=== PATIENT | male | born 1990 | race Caucasian/White ===

== ENCOUNTER 2025-02-20 19:09 | Emergency (ER) | payer MEDICAID, SELFPAY ==
[2025-02-20] VITALS (8 sets, daily range): BP systolic 132–190; BP diastolic 84–106; PULSE 71–97; RESP 16–22; TEMP 36.7; O2SAT 95–99; BMI 40.9
--- NOTE | 2025-02-20 19:12 | EKG12_ITS ---
Test Reason : CP/SOB Blood Pressure : */* mmHG Vent. Rate : 77 BPM Atrial Rate : 77 BPM P-R Int : 172 ms QRS Dur : 98 ms QT Int : 358 ms P-R-T Axes : 11 -3 44 degrees QTcB Int : 405 ms Normal sinus rhythm Minimal voltage criteria for LVH, may be normal variant ( R in aVL ) Borderline ECG Confirmed by Miky Dacosta ([id number]), acquisition editor PUAL THOMAS ([id number]) on 02/23/2025 6:52:45 AM Referred By: Confirmed By: Miky Dacosta
--- NOTE | 2025-02-20 19:53 | EDS_ITS ---
HPI <VI Mendoza - Last Filed: 02/20/25 22:13> History of Present Illness Chief Complaint: Chest Pain Narrative Narrative: Patient is a 34-year-old male with history of morbid obesity, anxiety, sleep apnea who [facility] for shortness of breath. Patient states that he drove 18 hours to and from [place], getting back home 2 and half weeks ago. Patient states since then, he has been having periods of shortness of breath. He states that these are worse at nighttime, he has lost weight he thinks that his sleep apnea machine is too strong. He states today while he was driving 1.5 hours to and from work that he could not catch his breath. He denies any specific pain however this is making him anxious and is here for evaluation. [facility] <VI Mendoza - Last Filed: 02/20/25 22:13> [facility] Medical History (Updated 02/20/25 @ 22:13 by VI Mendoza) Depression Anxiety Medical History no medical history Allergy/AdvReac Type Severity Reaction Status Date / Time No Known Allergies Allergy Verified 02/20/25 19:09 Family History no significant family his Surgical History no surgical history Social History Smoking Status: Current every day smoker tobacco type: e-cigarettes ROS <VI Mendoza - Last Filed: 02/20/25 22:13> ROS ED ROS Narrative Constitutional: Negative for fever, chills, weight loss, weakness Eyes: Negative for vision loss, vision change, double vision ENT: Negative for any sore throat, ear pain, congestion Cardiovascular: Negative for any palpitations. Positive chest pain, tightness Respiratory: Negative for any cough, sputum production, hemoptysis.Positive for dyspnea, dyspnea on exertion, orthopnea Gastrointestinal: Negative for any abdominal pain, nausea, vomiting, diarrhea, constipation, blood in stool, blood in vomit : Negative for any urinary frequency, dysuria, retention, blood in urine Muscle skeletal: Negative for any neck pain, back pain Neurological: Negative for any headache, syncope, dizziness Skin: Negative for any rashes, itching, abrasions, lacerations Psychiatric: Negative for any depression, anxiety, stress, suicidal ideation, homicidal ideation Hematologic: Negative for any excessive bruising, easy bleeding EXAM <VI Mendoza - Last Filed: 02/20/25 22:13> Physical Exam Narrative Exam Narrative: Vital signs reviewed. HEET: Head normocephalic atraumatic, TMs clear bilaterally. Posterior pharynx is clear, moist mucous membranes. Nares clear bilaterally. Neck: Supple with no lymphadenopathy or tenderness. No signs of meningismus. Cardiac: Regular rate and rhythm no murmurs gallops or rubs, equal peripheral pulses bilaterally. Respiratory: Lungs clear to auscultation bilaterally. Difficult to assess secondary to body habitus no chest tenderness. Abdomen: Soft, nontender, nondistended. No abdominal bruit or pulsatile masses. No hepatosplenomegaly Extremities: No peripheral edema, no signs of gross trauma or deformity. Active full range of motion of all extremities. Neuro: Cranial nerves II through XII intact, no focal neurological deficits. Skin: Clean dry and intact with no rash, purpura, petechiae, vesicles or pustules. Backs/flank: No CVA tenderness, no midline spinal tenderness, no deformity. Psych: Normal mood and affect. No SI, HI or acute psychosis. Const Vital Signs: 02/20/25 19:09 02/20/25 19:12 02/20/25 19:15 Temperature 98.1 F Temperature Source Oral Pulse Rate 88 Respiratory Rate 18 Respiratory Effort Respiratory Depth Respiratory Pattern Blood Pressure 190/106 H 160/102 H Blood Pressure Mean 134 121 Pulse Ox 99 97 Oxygen Delivery Method Room Air Room Air 02/20/25 20:02 02/20/25 20:04 02/20/25 20:09 Temperature Temperature Source Pulse Rate 74 Respiratory Rate 22 H Respiratory Effort Normal Normal Respiratory Depth Normal Respiratory Pattern Normal Blood Pressure 148/92 H Blood Pressure Mean 110 Pulse Ox 95 Oxygen Delivery Method Room Air Room Air 02/20/25 21:00 02/20/25 22:00 02/20/25 22:21 Temperature 98.1 F Temperature Source Pulse Rate 97 71 71 Respiratory Rate 16 16 Respiratory Effort Respiratory Depth Respiratory Pattern Blood Pressure 149/89 H 132/84 H 132/84 H Blood Pressure Mean 109 100 100 Pulse Ox 95 95 Oxygen Delivery Method Room Air Room Air Positive well nourished, well developed and obese General Appearance ED: well developed Nutritional Appearance: obese <Bradley Cabrera MD - Last Filed: 02/20/25 23:45> Physical Exam Const Vital Signs: 02/20/25 19:09 02/20/25 19:12 02/20/25 19:15 Temperature 98.1 F Temperature Source Oral Pulse Rate 88 Respiratory Rate 18 Respiratory Effort Respiratory Depth Respiratory Pattern Blood Pressure 190/106 H 160/102 H Blood Pressure Mean 134 121 Pulse Ox 99 97 Oxygen Delivery Method Room Air Room Air 02/20/25 20:02 02/20/25 20:04 02/20/25 20:09 Temperature Temperature Source Pulse Rate 74 Respiratory Rate 22 H Respiratory Effort Normal Normal Respiratory Depth Normal Respiratory Pattern Normal Blood Pressure 148/92 H Blood Pressure Mean 110 Pulse Ox 95 Oxygen Delivery Method Room Air Room Air 02/20/25 21:00 02/20/25 22:00 02/20/25 22:21 Temperature 98.1 F Temperature Source Pulse Rate 97 71 71 Respiratory Rate 16 16 Respiratory Effort Respiratory Depth Respiratory Pattern Blood Pressure 149/89 H 132/84 H 132/84 H Blood Pressure Mean 109 100 100 Pulse Ox 95 95 Oxygen Delivery Method Room Air Room Air [facility] <VI Mendoza - Last Filed: 02/20/25 22:13> [facility] Lab Data Labs: Laboratory Results - last 24 hr 02/20/25 20:24 WBC 11.0 RBC 4.77 Hgb 14.0 Hct 41.2 MCV 86.4 MCH 29.4 MCHC 34.0 RDW Std Deviation 42.8 RDW Coeff of Chris 13.6 Plt Count 261 MPV 9.2 Immature Gran % (Auto) 0.400 Neut % (Auto) 65.3 Lymph % (Auto) 24.4 [place] % (Auto) 7.9 Eos % (Auto) 1.6 Baso % (Auto) 0.4 Absolute Neuts (auto) 7.2 Absolute Lymphs (auto) 2.67 Nucleated RBC % 0 Sodium 137 Potassium 3.7 Chloride 103 Carbon Dioxide 22.5 Anion Gap 12 BUN 11 Creatinine 0.97 Estim Creat Clear Calc 159.63 Est GFR (MDRD) Non-Af 104 BUN/Creatinine Ratio 11.2 Glucose 96 Calcium 9.2 Troponin T High Sens < 6 Radiography Diagnostic Testing: Clinical Impression(s) from Imaging Studies Chest CTA 02/20/25 20:50 IMPRESSION: NORMAL CHEST CTA. NO EVIDENCE OF ACUTE PULMONARY EMBOLISM. Reading Location: [facility] EKG EKG shows normal sinus rhythm, rate of 77 bpm: Attestation: I personally reviewed and interpreted this EKG as follows: Interpretation: Sinus Rhythm Comments: Normal sinus rhythm, rate of 77 bpm, [place] interval 172 ms, QRS duration 98 ms, no acute ST elevation, no acute infarct noted. Treatment and Re-Evaluation :: Differential diagnosis includes however is not limited to: ACS, W[place], PE, anxiety, sleep apnea, pneumonia Patient appears generally well, vital signs are stable, patient is nontoxic- appearing. Presenting to the emergency department for ongoing worsening shor tness of breath. Patient is morbidly obese, patient received a cardiac workup including troponins x 2. Basic laboratory values. Secondary to the patient's long car rides, 1.5 hours to and from work, patient's inactivity, body habitus as well as recently returning home from driving to [place] a couple weeks ago, patient will receive a CTA of the chest. I also believe that a chest x-ray may not be as useful secondary to the body habitus. All radiologic examinations were read, reviewed by the emergency department attending. From these reads, a plan of care will be put in place. Patient CBC was unremarkable, chemistries were unremarkable, troponin was less than 6. Currently waiting for a CT scan of the chest. Patient's CTA of the chest was normal, no evidence of any acute pulmonary embolism. At this time, the patient will be discharged home. There is no evidence of any ACS, WV, PE. Patient will need to follow-up with a PCP. He is happy with the plan of care, he will continue to try to keep using his CPAP machine. He is given strict return precautions, all questions answered, stable for discharge <Bradley Cabrera MD - Last Filed: 02/20/25 23:45> [facility] Narrative Medical decision making narrative: Dr. Cabrera: I have personally performed a face to face assessment of the patient and have reviewed the MENG Note. I performed a substantive portion of the visit including all aspects of the following. My faustin findings include: History is pleuritic chest pain, shortness of breath. Exam is afebrile. Vital signs noted. Nontoxic-appearing. Cardiovascular examination reveals a regular rate and rhythm. Lungs clear to auscultation bilaterally. Abdomen is soft and nontender without guarding or rebound. Neurological examination nonfocal and nonlateralizing. Medical Decision Making: Check labs. Check CTA. No evidence of pulmonary embolism. Check troponin. Check EKG. EKG obtained interpreted by myself independently as normal sinus rhythm at [address] changes. No STEMI. As he has a normal CTA, he feels that he might have more anxiety symptoms and reaction regarding his chest pain and shortness of breath. I feel he be discharged to follow-up. Return instructions reviewed. Disposition is discharged home in stable condition. Other additions or changes: [None] History & Record Review Discussion w/independent historian: Patient Lab Data Attestation: I reviewed the patient's lab results. Labs: Laboratory Results - last 24 hr 02/20/25 20:24 WBC 11.0 RBC 4.77 Hgb 14.0 Hct 41.2 MCV 86.4 MCH 29.4 MCHC 34.0 RDW Std Deviation 42.8 RDW Coeff of Chris 13.6 Plt Count 261 MPV 9.2 Immature Gran % (Auto) 0.400 Neut % (Auto) 65.3 Lymph % (Auto) 24.4 [place] % (Auto) 7.9 Eos % (Auto) 1.6 Baso % (Auto) 0.4 Absolute Neuts (auto) 7.2 Absolute Lymphs (auto) 2.67 Nucleated RBC % 0 Sodium 137 Potassium 3.7 Chloride 103 Carbon Dioxide 22.5 Anion Gap 12 BUN 11 Creatinine 0.97 Estim Creat Clear Calc 159.63 Est GFR (MDRD) Non-Af 104 BUN/Creatinine Ratio 11.2 Glucose 96 Calcium 9.2 Troponin T High Sens < 6 Radiography Diagnostic Testing: Clinical Impression(s) from Imaging Studies Chest CTA 02/20/25 20:50 IMPRESSION: NORMAL CHEST CTA. NO EVIDENCE OF ACUTE PULMONARY EMBOLISM. Reading [facility] Discharge Plan Triage Chief Complaint: Chest Pain Other Complaint: Shortness of Breath ED Midlevel Provider: Jason Ritchie ED Provider: Bradley Cabrera Dx/Rx/DC Orders Clinical Impression: Acute dyspnea, Anxiety Instructions: ED Dyspnea Primary Care Provider: Gabriela Canchola Referrals: Care Physician,No Primary [Non-Staff] - Activity Restrictions/Additional Instructions: You had a negative cardiac workup as well as a negative CTA of the chest. Continue to follow-up outpatient. Print Language: Comoran Disposition Disposition: Home, Self Care Discharge Date/Time: 02/20/25 22:25
[2025-02-20 20:34] LABS: Absolute Lymphocyte Count 2.67 X10^3/uL (0.83-4.51); Absolute Neutrophil Count 7.2 X10^3/uL (2.0-7.7); Basophil# 0.04 X10^3/uL; Basophil% 0.4 % (0-1); Eosinophil# 0.18 X10^3/uL; Eosinophils% 1.6 % (0-5); Hematocrit 41.2 % (40-54); Lymphocyte # 2.67 X10^3/ul (0.83-4.51); Lymphocyte % 24.4 % (19-41); Mean Corpuscular Hgb 29.4 pg (27.0-32.0); Mean Corpuscular Volume 86.4 fL (80-94); Mean Platelet Vol. 9.2 fl (6.2-12.0); Monocyte# 0.87 X10^3/uL; Monocyte% 7.9 % (0-10); NRBC Flagged by Analyzer 0 % (0-5); Neutrophil # 7.15 X10^3/uL (2.7-7.7); Neutrophil % 65.3 % (47-70); Platelet Count 261 K/mm3 (150-450); RBC Distribution Width CV 13.6 % (11.6-14.6); RBC Distribution Width SD 42.8 fl (35.1-43.9); Red Blood Count 4.77 M/mm3 (4.6-6.2)
--- NOTE | 2025-02-20 20:50 | CT_ITS ---
PROCEDURE: CTA CHEST W/WO CONTRAST 02/20/2025 REASON FOR EXAM: DYSPNEA TECHNIQUE: CTA axial imaging of the chest with intravenous contrast. Coronal and Sagittal reconstruction series were provided. 3D, 3D post processing, 3D reconstructions, Maximum intensity projection (MIPs) Volume rendering and Shaded surface rendering was provided. PATIENT PREPARATION: Per protocol CONTRAST: Isovue 370 VOLUME: 98 mL Not Provided Gauge IV One or more dose reduction techniques were used (e.g., Automated exposure control, adjustment of the mA and/or kV according to patient size, use of iterative reconstruction technique). RADIATION DOSE SUMMARY: CTDlvol: 27 mGy DLP: 568 mGycm . COMPARISON: None FINDINGS: Hardware: Unremarkable Lymph nodes: No lymphadenopathy. Heart: Heart size is normal. No pericardial effusion. RV/LV Diameter Ratio: Thoracic Aorta: Contrast timing is designed to evaluate the pulmonary arteries. The thoracic aorta has a normal contour. Contrast opacification of the aorta is suboptimal for evaluation of the lumen. Pulmonary Vessels: No large central pulmonary emboli are identified. Contrast timing is suboptimal for evaluation of more distal branches. Most Proximal Level of Embolus (if embolus present): Lungs and Airways: The lungs are normally expanded and clear. Pleura: No pleural effusion. No pneumothorax. Upper Abdomen: Visualized portions of the upper abdominal viscera are unremarkable. Bones: Bone windows are unremarkable. CT/CTA Chest W/WO Contrast IMPRESSION: NORMAL CHEST CTA. NO EVIDENCE OF ACUTE PULMONARY EMBOLISM. [facility]
[2025-02-20 20:55] LABS: Anion Gap 12 (5-15); BUN 11 mg/dL (4-19); BUN/Creat Ratio 11.2 RATIO (10-20); Calcium,Total 9.2 mg/dL (7.6-11.0); Carbon Dioxide 22.5 mmol/L (21.0-32.0); Chloride 103 mmol/L (98-108); Creatinine, Serum 0.97 mg/dL (0.70-1.20); EST Glomerular Filtration Rate 104 (>60); Estimated Creatinine Clearance 159.63 ml/min (50-250); Glucose 96 mg/dL (70-99); Potassium 3.7 mmol/L (3.3-5.1); Sodium Level 137 mmol/L (133-145); Troponin T High Sensitivity < 6 ng/L (<=22)
== END 2025-02-20 22:25 | disposition home or self-care (01) ==
PROVIDERS: Emergency Provider Emergency Medicine; PCP Family Medicine; Visit Provider Emergency Medicine
DX: R06.02 Shortness of breath (principal); E66.01 Morbid (severe) obesity due to excess calories; Z68.41 Body mass index [BMI] 40.0-44.9, adult; F41.9 Anxiety disorder, unspecified; F17.290 Nicotine dependence, other tobacco product, uncomplicated
CPT/HCPCS: 71275; 80048; 84484; 85025; 93005; 99285; Q9967; A4216

== ENCOUNTER 2025-04-01 13:17 | Emergency (ER) | payer MEDICAID, SELFPAY ==
[2025-04-01 13:17] VITALS: BP 159/97; PULSE 108; RESP 18; TEMP 36.1; O2SAT 97
--- NOTE | 2025-04-01 14:59 | EKG12_ITS ---
Test Reason : SOB Blood Pressure : */* mmHG Vent. Rate : 77 BPM Atrial Rate : 77 BPM P-R Int : 196 ms QRS Dur : 96 ms QT Int : 352 ms P-R-T Axes : 21 -7 28 degrees QTcB Int : 398 ms Normal sinus rhythm with sinus arrhythmia Minimal voltage criteria for LVH, may be normal variant ( R in aVL ) Poor R wave progression Abnormal ECG When compared with ECG of 20-Feb-2025 19:18, No significant change was found Confirmed by Miky Dacosta ([id number]), photographic editor PAUL THOMAS ([id number]) on 04/10/2025 10:05:32 AM Referred By: CINDY/BRIAN Confirmed By: Miky Dacosta
[2025-04-01 15:05] LABS: Absolute Lymphocyte Count 1.35 X10^3/uL (0.83-4.51); Absolute Neutrophil Count 8.7 X10^3/uL (2.0-7.7); Basophil# 0.04 X10^3/uL; Basophil% 0.4 % (0-1); Eosinophil# 0.01 X10^3/uL; Eosinophils% 0.1 % (0-5); Hematocrit 42.7 % (40-54); Hemoglobin 14.5 g/dL (13.0-16.5); Lymphocyte # 1.35 X10^3/ul (0.83-4.51); Lymphocyte % 12.5 % (19-41); Mean Corpuscular Hgb 29.7 pg (27.0-32.0); Mean Corpuscular Volume 87.3 fL (80-94); Mean Platelet Vol. 10.3 fl (6.2-12.0); Monocyte# 0.67 X10^3/uL; Monocyte% 6.2 % (0-10); NRBC Flagged by Analyzer 0 % (0-5); Neutrophil # 8.72 X10^3/uL (2.7-7.7); Neutrophil % 80.5 % (47-70); Platelet Count 257 K/mm3 (150-450); RBC Distribution Width CV 13.5 % (11.6-14.6); RBC Distribution Width SD 42.9 fl (35.1-43.9); Red Blood Count 4.89 M/mm3 (4.6-6.2); White Blood Count 10.8 K/mm3 (4.4-11.0)
--- NOTE | 2025-04-01 15:11 | RAD_ITS ---
PROCEDURE: CHEST PA AND LATERAL 04/01/2025 REASON FOR EXAM: SOB TECHNIQUE: Frontal and lateral views of the chest. COMPARISON: None FINDINGS: No focal consolidations. No pleural effusion or pneumothorax. Cardiac silhouette is unremarkable. No acute fractures. RAD/Chest PA and Lateral IMPRESSION: No focal consolidations. Reading Location: [id number]
[2025-04-01 15:17] VITALS: BP 142/88; PULSE 84; RESP 22; O2SAT 100
[2025-04-01 15:46] LABS: Anion Gap 15 (5-15); BUN 10 mg/dL (4-19); BUN/Creat Ratio 9.7 RATIO (10-20); Carbon Dioxide 21.1 mmol/L (21.0-32.0); Chloride 103 mmol/L (98-108); Creatinine, Serum 0.98 mg/dL (0.70-1.20); EST Glomerular Filtration Rate 103 (>60); Glucose 114 mg/dL (70-99); Potassium 3.6 mmol/L (3.3-5.1); Sodium Level 139 mmol/L (133-145)
[2025-04-01 15:53] LABS: Blood Gas Specimen Type VEN; O2 Delivery Device Not entered; SITE Not entered; VBG BASE EXCESS 2 mmol/L (-1.0-3.5); VBG Bicarbonate 27 mmol/L (22-26); VBG PO2 50 mmHg (25-40); VBG SO2 86 % (50-70); VBG TCO2 28 mmol/L (23-33); VBG pCO2 42.2 mmHg (41-51); VBG pH 7.41 (7.32-7.42)
[2025-04-01 16:04] LABS: Pro- Brain NATRIURETIC PEPTIDE < 36 pg/mL (<=450); Troponin T High Sensitivity 7 ng/L (<=22)
--- NOTE | 2025-04-01 16:10 | EDS_ITS ---
HPI History of Present Illness Chief Complaint: Shortness of Breath Informant: patient and family Narrative Narrative: Patient is a 34-year-old male presenting with continued shortness of breath and worsening anxiety. He states he started following bariatric medicine through the [facility] a year ago. He been losing weight and exercising. He correlates weight loss with his CPAP not fitting as well. He states over the past month he has been taken off more at night and now he feels worse like he cannot breathe when he does wear it. He has had a recent sleep study but had to leave early because he had a panic attack. He states he is not to the point that he feels short of breath all the time. He felt short of breath again today and was crying. He states he has a tightness in his chest and feels bloated in his epigastric region. He had a bowel movement yesterday but states he did feel little constipated yesterday. He is following with his PCP as well as therapist who referred him to a psychiatrist. He states during his last visit he was offered either anxiety medicine or sleep medicine and he chose a sleep medicine. He states he is not wishing he would have chosen anxiety medicine. He has no appointments this coming week for follow-up with his psychiatrist. Of note patient was seen in the ER for similar symptoms a month ago. Patient states this is all of the same. He questions how much of this is his breathing versus his anxiety. No other acute complaints at this time. Patient denies any history of DVT or PE. Denies any recent with swelling of his legs. Denies any known history of any heart or lung problems besides sleep apnea. PFSH PFS Medical History Depression Anxiety Home Medications ?Medication ?Instructions ?Recorded ?Last Taken ?Type lorazepam 1 mg tablet (Ativan) 1 mg PO BID PRN anxiety 5 days #10 04/01/25 Unknown Rx tabs Allergy/AdvReac Type Severity Reaction Status Date / Time No Known Allergies Allergy Verified 04/01/25 13:18 Family History no significant family his Social History Smoking Status: Current every day smoker tobacco type: e-cigarettes ROS ROS ED Constitutional Constitutional ED: Denies chills or fever(s) ENT ENT ED: Denies rhinorrhea or sore throat Cardiovascular Cardiovascular: Reports chest pain, orthopnea and paroxysmal nocturnal dyspnea; Denies palpitations Respiratory/Chest Respiratory/Chest: Reports dyspnea, orthopnea and paroxysmal nocturnal dyspnea; Denies cough Gastrointestinal Gastrointestinal: Reports abdominal pain; Denies nausea or vomiting Integumentary Denies rash Neurologic Neurologic: Denies headache(s) Psychiatric Psychiatric: Reports anxiety and depression; Denies suicidal ideation or suicidal thoughts EXAM Physical Exam Const Vital Signs: 04/01/25 13:17 04/01/25 14:33 04/01/25 15:17 Temperature 96.9 F L Temperature Source Temporal Pulse Rate 108 H 84 Respiratory Rate 18 22 H Respiratory Effort Short of Breath Blood Pressure 159/97 H 142/88 H Blood Pressure Mean 117 106 Pulse Ox 97 100 Oxygen Delivery Method Room Air Room Air Room Air 04/01/25 16:07 04/01/25 17:00 Temperature Temperature Source Pulse Rate 86 Respiratory Rate Respiratory Effort Blood Pressure Blood Pressure Mean Pulse Ox 98 Oxygen Delivery Method Room Air Room Air Positive well nourished, well developed and obese General Appearance ED: well developed and NAD; Negative for pallor Nutritional Appearance: obese HEENT Reports moist mucous membranes Eyes PERRL Neck supple and no JVD Resp normal respiratory effort and clear to auscultation bilaterally Resp Narrative: No use of accessory muscles with breathing. Auscultation: Negative for rales, rhonchi, wheezes or diminished lung sounds Cardio regular rate, regular rhythm and no murmurs Cardio Narrative: 2+ radial DP pulses present. GI non-tender Palpation: soft Extremity normal to inspection General Extremety ED: Negative for edema General Extremity: Negative for edema Neuro oriented x3 Sensorium / Orientation: alert Motor Exam: Negative for general weakness Psych mental status grossly normal Mood & Affect: anxious and tearful Thought Process: normal thought process Skin General Skin Exam: Negative for jaundice or pallor MDM MDM MDM Narrative Medical decision making narrative: Patient presents with 1 month of worsening shortness of breath. He is no longer tolerating his BiPAP. He is following up outpatient with both psychiatry and pulmonology with stress test. He reports worsening anxiety and depression with the symptoms but denies any HI or SI. Differential includes anxiety reaction, pickwickian syndrome, decompensated/new onset heart failure, hypercapnia, ACS, pneumonia/pleural effusion. Patient was evaluated the same symptoms a month ago and had a CT at this time that was negative for PE. While he is tachycardic on arrival he does not have any other PE risk factors I do not think requires repeat workup for this at this time. Vital signs are stable in the emergency room. He is never hypoxic. Patient reevaluated and had 1658. Vital signs all stable. Tachycardia is improved. He still feels very anxious and short of breath. No significantly with 1 mg IV Ativan. Will give 2 mg IV Haldol and reevaluate. Anticipate this is more anxiety reaction at this time and ultimately will be able to discharge home. CBC normal. High-sensitivity troponin normal. BNP less than 36. CMP normal. VBG shows a normal pH with normal pCO2 and bicarb. I do not think he is retaining CO2. Initially given 1 mg IV Ativan with minimal improvement. After receiving IV Haldol patient becomes increasingly anxious and jittery. I suspect he is having akathisia associated with this. Is given 50 mg IV Benadryl. He feels improved now. Would like to be discharged home. Will discharge him home with a short course of lorazepam for his anxiety. He will follow-up this week with psychiatry. Given return precautions. Discharged home in stable condition. Lab Data Attestation: I reviewed the patient's lab results. Labs: Laboratory Results - last 24 hr 04/01/25 04/01/25 13:58 15:54 WBC 10.8 RBC 4.89 Hgb 14.5 Hct 42.7 MCV 87.3 MCH 29.7 MCHC 34.0 RDW Std Deviation 42.9 RDW Coeff of Chris 13.5 Plt Count 257 MPV 10.3 Immature Gran % (Auto) 0.300 Neut % (Auto) 80.5 H Lymph % (Auto) 12.5 L [place] % (Auto) 6.2 Eos % (Auto) 0.1 Baso % (Auto) 0.4 Absolute Neuts (auto) 8.7 H Absolute Lymphs (auto) 1.35 Nucleated RBC % 0 Sodium 139 Potassium 3.6 Chloride 103 Carbon Dioxide 21.1 Anion Gap 15 BUN 10 Creatinine 0.98 Est GFR (MDRD) Non-Af 103 BUN/Creatinine Ratio 9.7 L Glucose 114 H Calcium 10.0 Troponin T High Sens 7 D Troponin T Hi Sens 2 Hr 7 NT pro BNP II < 36 ABG Data Attestation: I personally reviewed and interpreted this ABG as follows: ABG results: ABG 04/01/25 15:49 Specimen Type TERESA Sample Site Not entered VBG pH 7.41 VBG pO2 50 H VBG HCO3 27 H VBG Total CO2 28 VBG O2 Sat (Calc) 86 H VBG Base Excess 2 POC Mix VBG pCO2 Pt Tmp 42.2 O2 Delivery Device Not entered Radiography Chest X-Ray - ED: 2 View, Read by ED Physician, Read by Radiologist and No Acute Disease Diagnostic Testing: Clinical Impression(s) from Imaging Studies Chest X-Ray 04/01/25 15:11 IMPRESSION: No focal consolidations. Reading Location: [facility] Rhythm Strip Rhythm Strip: Sinus Rhythm Rate: 77 Ectopy: None EKG Initial EKG: Attestation: I personally reviewed and interpreted this EKG as follows: Interpretation: Sinus Rhythm Comments: Normal sinus rhythm with sinus arrhythmia at a rate of 77 bpm Normal axis Minimal trace criteria for LVH Normal ST segments Prior EKG tracings: available for review Prior: Unchanged Discharge Plan Triage Chief Complaint: Shortness of Breath ED Provider: Olamide Perry Dx/Rx/DC Orders Clinical Impression: Dyspnea, Anxiety Instructions: ED Anxiety Reaction, ED Dyspnea Prescriptions: New lorazepam [Ativan] 1 mg tablet 1 mg PO BID PRN (Reason: anxiety) 5 Days Qty: 10 0RF Primary Care Provider: Gabriela Canchola Referrals: Gabriela Canchola, [Primary Care Provider] - Activity Restrictions/Additional Instructions: Please continue to follow-up with psychiatry as well as pulmonology and your primary care doctor as we discussed. At this point I feel that this mostly is anxiety but likely there is some underlying sleep apnea that is making this worse. Print Language: Yakut
[2025-04-01 16:15] LABS: Troponin T High Sens 2 HR 7 ng/L (<=22)
[2025-04-01] MEDS: Lorazepam 2 MG/ML WCH Syringe 1 MG IV (16:16)
[2025-04-01 17:00] VITALS: PULSE 86; O2SAT 98
[2025-04-01] MEDS: Haloperidol Lactate 5 MG/ML Vial 2 MG IV (17:11)
[2025-04-01] MEDS: DiphenhydrAMINE 50 MG/ML Syringe IV (17:28)
[2025-04-01 17:54] VITALS: BP 160/104; PULSE 82; RESP 20; TEMP 36.1; O2SAT 97
== END 2025-04-01 18:05 | disposition home or self-care (01) ==
PROVIDERS: Emergency Provider Emergency Medicine; PCP Family Medicine; Visit Provider Emergency Medicine
DX: R06.02 Shortness of breath (principal); F41.9 Anxiety disorder, unspecified; F17.290 Nicotine dependence, other tobacco product, uncomplicated
CPT/HCPCS: 71046; 80048; 82803; 83880; 84484; 85025; 93005; 96374; 96375; 99284; A4216

== ENCOUNTER 2025-04-30 15:59 | Emergency (ER) | payer MEDICAID, SELFPAY ==
[2025-04-30 15:59] VITALS: BP 177/106; PULSE 75; RESP 14; TEMP 36.7; O2SAT 97; BMI 46.8
--- NOTE | 2025-04-30 16:17 | ED.VIS.CHEST ---
HPI History of Present Illness Chief Complaint: Chest Pain Informant: patient Onset/Context/Timing Onset: Days (2) Activity at onset: gradual Timing: Waxes and wanes Quality: Positive for Aching, Dull and Heaviness Location: Substernal Worsened By: - (Laying flat, stress) Relieved By: - (Standing and sitting upright) Associated Symptoms: Positive for Diaphoresis, Dyspnea and Palpitations; Negative for Nausea, Vomiting, Cough, Fever, Lightheadedness or Acid Reflux Narrative Narrative: Patient presents with chest pain that has been waxing and waning over the past 2 days. Patient describes his heaviness, aching, and dull. Patient states it is over the substernal area. Patient states it is worse with stress and with laying down. Patient states it is better with standing and sitting upright. Patient admits to some shortness of breath and diaphoresis. Patient also admits to some palpitations. Patient denies any nausea or vomiting. Patient denies any cough or fever. [facility] Medical History (Updated 04/30/25 @ 17:[address] Ap Chavez DO) Hypertension Depression Anxiety Home Medications ?Medication ?Instructions ?Recorded ?Last Taken ?Type lorazepam 1 mg tablet (Ativan) 1 mg PO BID PRN anxiety 5 days #10 04/01/25 Unknown Rx tabs Allergy/AdvReac Type Severity Reaction Status Date / Time No Known Allergies Allergy Verified 04/30/25 15:59 Family History no significant family his Surgical History no surgical history no surgical history Social History (Updated 04/30/25 @ 16:[address] Ap Chavez, ) Smoking Status: Current every day smoker tobacco type: e-cigarettes substance use type: marijuana ROS ROS ED Constitutional Constitutional ED: Denies chills or fever(s) Eyes Eyes: Denies blurry vision or change in vision ENT ENT ED: Denies rhinorrhea or sore throat Cardiovascular Cardiovascular: Reports chest pain; Denies palpitations Respiratory/Chest Respiratory/Chest: Reports dyspnea; Denies cough Gastrointestinal Gastrointestinal: Denies nausea or vomiting Genitourinary Genitourinary ED: Denies dysuria or hematuria Musculoskeletal Musculoskeletal: Reports back pain; Denies neck pain Integumentary Denies abscess or rash Neurologic Neurologic: Denies headache(s) or weakness Allergic/Immunologic Allergic/Immunologic ED: Denies mouth swelling or urticaria EXAM Physical Exam Const Vital Signs: 04/30/25 15:59 04/30/25 16:29 04/30/25 16:32 Temperature 98.1 F Temperature Source Temporal Pulse Rate 75 76 Respiratory Rate 14 Blood Pressure 177/106 H 169/110 H Blood Pressure Mean 129 Pulse Ox 97 Oxygen Delivery Method Room Air Room Air 04/30/25 16:49 04/30/25 17:00 Temperature Temperature Source Pulse Rate 75 Respiratory Rate Blood Pressure 183/92 H 183/111 H Blood Pressure Mean 122 135 Pulse Ox 97 Oxygen Delivery Method Room Air Positive well nourished and well developed Constitutional Narrative: BMI is 46.8 General Appearance ED: well developed and NAD HEENT Reports moist mucous membranes normocephalic and atraumatic Neck supple and no JVD Chest Wall palpation of chest normal Resp normal respiratory effort and clear to auscultation bilaterally Cardio regular rate and regular rhythm GI soft to palpation, non-tender and non-distended Extremity normal to inspection General Extremety ED: Negative for edema or tenderness General Extremity: Negative for edema Neuro oriented x3, CN's II-XII intact bilaterally and no sensory deficits noted Sensorium / Orientation: awake and alert Motor Exam: strength 5/5 throughout Psych mental status grossly normal Heart Score History: Slightly/Non-Suspicious ECG: Normal Age: </= 45 years Risk Factors: 1 or 2 Risk Factors Troponin: </= Normal Limit Score: 1 MDM MDM MDM Narrative Medical decision making narrative: Differential diagnosis includes cardiac dysrhythmia, cardiac ischemia, gastroesophageal reflux disease, pneumonia, bronchitis, electrolyte abnormality, and anxiety. EKG will be obtained to assess for cardiac dysrhythmia and cardiac ischemia. Chest x-ray will be obtained to assess for pneumonia and bronchitis. CBC will be obtained to assess for leukocytosis and anemia. Basic metabolic profile will be obtained to assess for electrolyte abnormality and renal function. High-sensitivity troponin will be obtained to assess for cardiac ischemia. History & Record Review Additional record(s) reviewed:: Prior ED visit and Prior labs Lab Data Attestation: I reviewed the patient's lab results. Lab results narrative: CBC was reviewed. There is a slight leukocytosis of 11.2 the remainder is within normal limits. Basic metabolic profile was reviewed and was essentially within normal limits. High-sensitivity troponin was reviewed and was normal at 7. Labs: Laboratory Results - last 24 hr 04/30/25 16:20 WBC 11.2 H RBC 4.66 Hgb 13.9 Hct 41.7 MCV 89.5 MCH 29.8 MCHC 33.3 RDW Std Deviation 45.3 H RDW Coeff of Chris 14.1 Plt Count 267 MPV 9.8 Immature Gran % (Auto) 0.500 Neut % (Auto) 62.5 Lymph % (Auto) 26.0 [place] % (Auto) 8.5 Eos % (Auto) 2.1 Baso % (Auto) 0.4 Absolute Neuts (auto) 7.0 Absolute Lymphs (auto) 2.92 Nucleated RBC % 0 Sodium 139 Potassium 4.8 Chloride 105 Carbon Dioxide 22.9 Anion Gap 11 BUN 15 Creatinine 0.89 Estim Creat Clear Calc 187.49 Est GFR (MDRD) Non-Af 114 BUN/Creatinine Ratio 17.3 Glucose 114 H Calcium 8.9 Troponin T High Sens 7 Radiography Chest X-Ray - ED: 1 View, Read by ED Physician, Read by Radiologist and No Acute Disease Diagnostic Testing: Clinical Impression(s) from Imaging Studies Chest X-Ray 04/30/25 16:40 IMPRESSION: Lungs appear clear throughout. No pleural effusion or pneumothorax is noted. The cardiomediastinal silhouette is within the normal range, and unchanged. No acute osseous change is noted. Negative examination. Reading Location: [place] [id number] EKG Initial EKG: Attestation: I personally reviewed and interpreted this EKG as follows: Interpretation: Sinus Rhythm (69) and No Acute Injury Pattern Comments: EKG was obtained. On my independent interpretation, it showed a normal sinus rhythm with a rate of 69. SD interval, QRS interval, and QTc intervals were all normal. [place] was normal. There are no acute ST or T wave changes. Treatment and Re-Evaluation :: Patient was given aspirin. Patient was advised of his findings. Patient has a HEART score of 1. Patient was advised that this is low risk for acute cardiac event. Patient was instructed to follow-up with his primary care physician in 5 to 7 days. Patient was instructed to return if worse in any way. Patient understood and was agreeable with the plan. All questions were answered. Discharge Plan Triage Chief Complaint: Chest Pain ED Provider: Ap Chavez Dx/Rx/DC Orders Clinical Impression: Chest pain, Hypertension, Mild anxiety Instructions: ED Chest Pain, Uncertain Cause, ED High Blood Pressure Hypertension Prescriptions: No Action lorazepam [Ativan] 1 mg tablet 1 mg PO BID PRN (Reason: anxiety) 5 Days Qty: 10 0RF Primary Care Provider: Gabriela Canchola Referrals: Gabriela Canchola DO [Primary Care Provider] - 3-5 Days Print Language: [place] Island[place] Disposition Disposition: Home, Self Care
--- NOTE | 2025-04-30 16:24 | EKG12_ITS ---
Test Reason : chest pain Blood Pressure : */* mmHG Vent. Rate : 69 BPM Atrial Rate : 69 BPM P-R Int : 162 ms QRS Dur : 96 ms QT Int : 370 ms P-R-T Axes : 5 6 34 degrees QTcB Int : 396 ms Normal sinus rhythm Normal ECG Confirmed by SYLVIA FISCHER, YOEL ([id number]), field map editor GERMÁN GILL ([id number]) on 05/01/2025 11:14:16 AM Referred By: Confirmed By: YOEL WARD MD
[2025-04-30 16:29] VITALS: BP 169/110; PULSE 76
[2025-04-30] MEDS: Nitroglycerin SL (ED/IMG/CATH) 0.4 MG TABLET SL (16:29)
[2025-04-30] MEDS: Aspirin 81 MG TAB.CHEW 324 MG PO (16:30)
[2025-04-30 16:33] LABS: Absolute Lymphocyte Count 2.92 X10^3/uL (0.83-4.51); Basophil# 0.05 X10^3/uL; Basophil% 0.4 % (0-1); Eosinophil# 0.24 X10^3/uL; Eosinophils% 2.1 % (0-5); Hematocrit 41.7 % (40-54); Hemoglobin 13.9 g/dL (13.0-16.5); Lymphocyte # 2.92 X10^3/ul (0.83-4.51); Mean Corp Hgb Conc 33.3 g/dL (32-36); Mean Corpuscular Hgb 29.8 pg (27.0-32.0); Mean Corpuscular Volume 89.5 fL (80-94); Mean Platelet Vol. 9.8 fl (6.2-12.0); Monocyte# 0.95 X10^3/uL; Monocyte% 8.5 % (0-10); NRBC Flagged by Analyzer 0 % (0-5); Neutrophil # 6.99 X10^3/uL (2.7-7.7); Neutrophil % 62.5 % (47-70); Platelet Count 267 K/mm3 (150-450); RBC Distribution Width CV 14.1 % (11.6-14.6); RBC Distribution Width SD 45.3 fl (35.1-43.9); Red Blood Count 4.66 M/mm3 (4.6-6.2); White Blood Count 11.2 K/mm3 (4.4-11.0)
--- NOTE | 2025-04-30 16:40 | RAD_ITS ---
PROCEDURE: CHEST 1 VIEW (PORTABLE) 04/30/2025 REASON FOR EXAM: CHEST PAIN TECHNIQUE: Frontal view of the chest. COMPARISON: Chest x-ray of 04/01/2025 RAD/Chest 1 View (Portable) IMPRESSION: Lungs appear clear throughout. No pleural effusion or pneumothorax is noted. The cardiomediastinal silhouette is within the normal range, and unchanged. No acute osseous change is noted. Negative examination. Reading Location: [place] [id number]
[2025-04-30 16:49] VITALS: BP 183/92; PULSE 75; O2SAT 97
[2025-04-30 16:51] LABS: Anion Gap 11 (5-15); BUN 15 mg/dL (4-19); BUN/Creat Ratio 17.3 RATIO (10-20); Calcium,Total 8.9 mg/dL (7.6-11.0); Carbon Dioxide 22.9 mmol/L (21.0-32.0); Chloride 105 mmol/L (98-108); Creatinine, Serum 0.89 mg/dL (0.70-1.20); EST Glomerular Filtration Rate 114 (>60); Estimated Creatinine Clearance 187.49 ml/min (50-250); Glucose 114 mg/dL (70-99); Potassium 4.8 mmol/L (3.3-5.1); Sodium Level 139 mmol/L (133-145); Troponin T High Sensitivity 7 ng/L (<=22)
[2025-04-30 17:00] VITALS: BP 183/111
[2025-04-30 17:42] VITALS: BP 177/98; PULSE 64; RESP 18; TEMP 36.7; O2SAT 97
== END 2025-04-30 17:43 | disposition home or self-care (01) ==
PROVIDERS: Emergency Provider Emergency Medicine; PCP Family Medicine; Visit Provider Emergency Medicine
DX: R07.9 Chest pain, unspecified (principal); I10 Essential (primary) hypertension; F41.9 Anxiety disorder, unspecified; F17.290 Nicotine dependence, other tobacco product, uncomplicated; Z79.899 Other long term (current) drug therapy
CPT/HCPCS: 71045; 80048; 84484; 85025; 93005; 99283; A4216